=== PATIENT | female | born 2000 | race Hispanic/Latino ===

== ENCOUNTER 2024-09-21 10:34 | Emergency (ER) | payer SELFPAY ==
[~2024-09-21] VITALS: Ht 154.9 cm; Wt 73.5 kg
--- NOTE | 2024-09-21 11:05 | ERN ---
General Chief Complaint: Palpitations Stated Complaint: PALPITATIONS, SOB, COUGH, CONGESTION Time Seen by MD: 10:36 Time Seen by Midlevel: 10:36 Source: patient History of Present Illness Initial Comments Patient is a 24-year-old female with a past medical history of tachycardia presenting to the emergency department with chest pain and palpitations that started earlier this morning. Patient does report having a history of tachycardia and reports being previously followed by [facility] environmental [facility]. She was previously on 100 mg of metoprolol twice a day but stopped taking this medication one year ago. She was no longer followed by [facility] environmental [facility] because she did not like the care she received. Yesterday she reports developing some cough/congestion. This morning she woke up with some chest pain and palpitations and decided to come into the ER for further evaluation. Allergies: Coded Allergies: azithromycin (Unverified Allergy, Unknown, 09/21/24) ibuprofen (Unverified Allergy, Unknown, 09/21/24) Home Meds Active Scripts Oseltamivir Phosphate (Tamiflu) 75 Mg Cap, 75 MG PO BID for 5 Days, #10 CAP Prov:GERALD PENALOZA 09/21/24 Past Medical History Past Medical History: Other Medical History Other: HEART MURMUR, TACHYCARDIA Past Surgical History: None Female( History) LMP: Jan 25, 2024 ROS Dictation CONSTITUTIONAL: Negative except for HPI HEAD/FACE: Negative except for HPI EENT: Negative except for HPI RESPIRATORY: Negative except for HPI GASTROINTESTINAL/ABDOMINAL: Negative except for HPI GENITOURINARY: Negative except for HPI MUSCULOSKELETAL: Negative except for HPI INTEGUMENTARY: Negative except for HPI NEUROLOGICAL/PSYCH: Negative except for HPI HEMATOLOGIC/LYMPHATIC: Negative except for HPI All Systems Negative, Except as noted above. 13 point review of systems assessed and all negative except for above. Physical Exam Physical Exam Dictation Vital Signs reviewed General Appearance: Alert, oriented x 3, no acute distress, well developed, nourished. Head and Face: non-traumatic. Eyes: PERRL, pink conjunctivas, eyelid no trauma, anterior chamber with arcus senilis. Ears: Pinnas intact and no signs of trauma or erythema ear canals clear and no discharge TM no erythema Nose: No discharge, no bleeding. Oropharynx: Mouth normal, tongue pink, pharynx clear,no erythema, tonsils no exudates, no abscesses noted, mucous membrane moist Neck: Supple, non-tender, no thyromegaly, no masses, no JVD, no bruits Breast:Deferred Chest:No tenderness, no crepitus, no paradoxical movement, no retractions Lungs:Clear, well-ventilated, symmetric, no rales, no wheezing, no rhonchi, no stridor, good breath sounds bilaterally Heart: Tachycardic, regular rhythm, no murmur, no gallops Vascular: no peripheral edema, Abdomen: Soft, positive bowel sounds, nondistended, no guarding, nontender, no rebound, no masses no hepatomegaly, no splenomegaly, no Romero's sign, no hernias. Rectal: Deferred Genital: Deferred Neurological: Normal speech, motor function intact, sensory function intact Musculoskeletal: Neck nontender, full range of motion, back nontender, full range of motion, Extremities: nontender, full range of motion Skin: Color pink, dry, no turgor, no rash, no lacerations, no abrasions, no contusions. Lymphatic: Deferred Results Laboratory and Microbiology Lab and Micro Result Laboratory Tests Test 09/21/24 10:54 09/21/24 10:55 09/21/24 11:16 White Blood Count 8.3 K/uL (4.8-10.8) Red Blood Count 4.91 MIL/uL (4.00-5.50) Hemoglobin 15.0 g/dL (12.0-16.0) Hematocrit 45.1 % (36-48) Mean Corpuscular Volume 91.9 fL (79-99) Mean Corpuscular Hemoglobin 30.5 pg (27.0-33.0) Mean Corpuscular Hemoglobin Concent 33.3 g/dL (32.0-36.0) Red Cell Distribution Width 11.9 % (11.0-15.5) Platelet Count 317 K/uL (130-400) Mean Platelet Volume 9.1 fL (7.5-10.5) Immature Granulocyte % (Auto) 0.8 % (0-1) Neutrophils (%) (Auto) 80.3 % (40.0-77.0) H Lymphocytes (%) (Auto) 9.7 % (21.0-51.0) L Monocytes (%) (Auto) 9.0 % (3.0-13.0) Eosinophils (%) (Auto) 0.1 % (0.0-8.0) Basophils (%) (Auto) 0.1 % (0.0-5.0) Neutrophils # (Auto) 6.7 K/uL (1.8-7.7) Lymphocytes # (Auto) 0.8 K/uL (1.0-4.8) L Monocytes # (Auto) 0.8 K/uL (0.1-1.0) Eosinophils # (Auto) 0.01 K/uL (0.00-0.70) Basophils # (Auto) 0.01 K/uL (0.00-0.20) Absolute Immature Granulocyte (auto 0.07 K/uL (0-1) Nucleated Red Blood Cells 0.0 % (0.0-0.19) White Cell Morphology Comment See comments Sodium Level 140 mmol/L (136-145) Potassium Level 3.6 mmol/L (3.5-5.1) Chloride Level 102 mmol/L (101-111) Carbon Dioxide Level 31 mmol/L (21-32) Blood Urea Nitrogen 11 mg/dL (7-18) Creatinine 0.7 mg/dL (0.5-1.0) Glomerular Filtration Rate Calc 122 mL/min (>90) Random Glucose 94 mg/dL (70-105) Lactic Acid Level 1.3 mmol/L (0.8-2.5) Total Calcium 9.8 mg/dL (8.5-10.1) Total Creatine Kinase 111 U/L (21-232) Troponin I High Sensitivity < 4 ng/L (4-50) L B-Type Natriuretic Peptide < 5 pg/mL (0-100) Procalcitonin < 0.05 ng/mL (0.05-0.5) L Serum Test, Qualitative NEGATIVE (NEGATIVE) Urine Color LIGHT-YELLOW (YELLOW) Urine Appearance CLEAR (CLEAR) Urine pH 5.0 (5.0-8.0) Urine Specific Hailey 1.017 (1.001-1.031) Urine Protein NEGATIVE mg/dL (NEGATIVE) Urine Glucose (UA) NEGATIVE mg/dL (NEGATIVE) Urine Ketones NEGATIVE mg/dL (NEGATIVE) Urine Occult Blood NEGATIVE (NEGATIVE) Urine Nitrate NEGATIVE (NEGATIVE) Urine Bilirubin NEGATIVE mg/dL (NEGATIVE) Urine Urobilinogen 0.2 mg/dL (0.2-1.0) Urine Leukocyte Esterase NEGATIVE Meghan/uL Influenza Type A Antigen Positive For Type A Influenza Type B Antigen Negative For Type B SARS-CoV-2, RNA, NAAT NEGATIVE SARS CoV-2 Group A Streptococcus Rapid negative (NEGATIVE) Labs Reviewed?: Yes MDM MDM: Patient is a 24-year-old female with a past medical history of tachycardia presenting to the emergency department with chest pain and palpitations that started earlier this morning. Patient does report having a history of tachycardia and reports being previously followed by [facility] environmental [facility]. She was previously on 100 mg of metoprolol twice a day but stopped taking this medication one year ago. She was no longer followed by manager environmental health because she did not like the care she received. Yesterday she reports developing some cough/congestion. This morning she woke up with some chest pain and palpitations and decided to come into the ER for further evaluation. On physical examination patient is in no acute respiratory distress. She is tach ycardic in the 130s however she has an underlying history of unexplained tachycardia that has already been evaluated by manager environmental health. The remainder of her physical examination is unremarkable. Her CBC shows no leukocytosis. Her chemistries unremarkable. Her cardiac enzymes are negative. Lactic acid and procalcitonin are negative. Respiratory swabs are remarkable for influenza a. The patient will be started on Tamiflu and will be discharged home with supportive management. Differential diagnosis: Viral syndrome, upper respiratory infection, pneumonia, urinary tract infection There are no social concerns with this patient. Prescription drug management Prescriptions will include: Tamiflu Medical management and examination interpretation discussions were had by me with other qualified healthcare professionals as indicated for the patient's care. ED Course Orders Procedure Category Date Status Time 12 Lead Ekg Tracing- EKG 09/21/24 Complete Technical 10:40 B-Type Natriuretic LAB 09/21/24 Complete Peptide 10:40 Cbc With Differential LAB 09/21/24 Complete 10:40 Basic Metabolic Panel LAB 09/21/24 Complete 10:40 Creatine Kinase, Total LAB 09/21/24 Complete 10:40 Testing, LAB 09/21/24 Complete Serum Hcg 10:40 Urinalysis Profile LAB 09/21/24 Complete 10:40 Troponin I High LAB 09/21/24 Complete Sensitivity 10:40 Covid Rna Naat LAB 09/21/24 Complete 10:40 Influenza Type A & B, LAB 09/21/24 Complete Rapid 10:40 Rapid (Group A Strep) LAB 09/21/24 Complete 10:40 Lactic Acid LAB 09/21/24 Complete 10:40 Procalcitonin LAB 09/21/24 Complete 10:40 Chest 1vw RAD 09/21/24 Resulted 10:40 0.9%Nacl 1000ml (Ns PHA 09/21/24 Complete 1000ml) 11:00 Acetaminophen 500mg PHA 09/21/24 Complete Tab (Tylenol 500mg T 12:30 Current Medications Medications (Trade) Dose Ordered Sig/Wan Route PRN Reason Start Time Stop Time Status Last Admin Dose Admin Acetaminophen (TYLenol 500MG TAB) 1,000 mg ONCE ONCE PO 09/21/24 12:30 09/21/24 12:31 DC 09/21/24 13:07 Sodium Chloride 1,000 ml @ 0 mls/hr ONCE ONCE IV 09/21/24 11:00 09/21/24 11:01 DC 09/21/24 11:06 Vital Signs Date Time Temp Pulse Resp B/P (MAP) Pulse Ox O2 Delivery O2 Flow Rate FiO2 09/21/24 11:23 100.8 135 20 128/87 100 Room Air* 0 21 09/21/24 10:36 100.8 135 20 128/87 100 Room Air 0 [place] [id number] IMAGING REPORT Signed PATIENT: MARILYNN GUPTA MR#: [id number] : 2000 SEX: F AGE: 24 LOCATION: [facility] ORDER [id number] STATUS: REG ER REPORT#: [id number] SERVICE 1040 REASON: chest pain/sob/tachycardia ORDERING PHYSICIAN: GERALD PENALOZA PROCEDURE: CXR1VW - CHEST 1VW CHEST 1VW REASON: chest pain/sob/tachycardia COMPARISON: None. FINDINGS: Single view of the chest was obtained. Lungs are clear. Heart size is normal. There is no pulmonary vascular congestion. Mediastinum and bony thorax appear unremarkable. IMPRESSION: 1. Normal single view chest x-ray. DICTATED BY: MIROSLAVA ROSE MD DATE: 09/21/24 1140 ELECTRONICALLY SIGNED BY: MIROSLAVA ROSE MD DATE: 09/21/24 1149 DX & DISP Disposition: Discharge Departure Impression: Primary Impression: Influenza A Additional Impression: History of tachycardia Condition: Stable Scripts Ciprofloxacin HCl/Hc (Cipro Hc Otic Susp) 0.2 %-1 % Otsus 3 DROP OTIC BID for 7 Days, #10 ML 0 Refills Prov: GERALD PENALOZA 09/21/24 Oseltamivir Phosphate (Tamiflu) 75 Mg Cap 75 MG PO BID for 5 Days, #10 CAP Prov: GERALD PENALOZA 09/21/24 Referrals: LANCE BLUM MD Time of Disposition: 12:54 I have reviewed the case, and I agree with, Diagnosis and Plan I performed the substantive portion of the visit. I have reviewed and personally made and approve the management plan that is documented in the note by myself or the ILEANA. I acknowledge for responsibility for the patient's management plan. GERALD PENALOZA Sep 21, 2024 11:04
[2024-09-21] MEDS: 0.9%NACL 1000ML 1,000 ML IV ONE (11:06)
[2024-09-21 11:18] LABS: BASOPHILS # (AUTO) 0.01 K/uL (0.00-0.20); BASOPHILS % (AUTO) 0.1 % (0.0-5.0); EOSINOPHILS # (AUTO) 0.01 K/uL (0.00-0.70); EOSINOPHILS % (AUTO) 0.1 % (0.0-8.0); HEMATOCRIT 45.1 % (36-48); IMMATURE GRANULOCYTE ABSOLUTE 0.07 K/uL (0-1); LYMPHOCYTES # (AUTO) 0.8 K/uL (1.0-4.8); LYMPHOCYTES % (AUTO) 9.7 % (21.0-51.0); MEAN CORPUSCULAR HEMOGLOBIN 30.5 pg (27.0-33.0); MEAN CORPUSCULAR HGB CONC 33.3 g/dL (32.0-36.0); MEAN CORPUSCULAR VOLUME 91.9 fL (79-99); MONOCYTES # (AUTO) 0.8 K/uL (0.1-1.0); NEUTROPHILS # (AUTO) 6.7 K/uL (1.8-7.7); NEUTROPHILS % (AUTO) 80.3 % (40.0-77.0); PLATELET COUNT (AUTO) 317 K/uL (130-400); RED BLOOD CELL COUNT(AUTO) 4.91 MIL/uL (4.00-5.50); RED CELL DISTRIBUTION WIDTH 11.9 % (11.0-15.5); WHITE BLOOD COUNT (AUTO) 8.3 K/uL (4.8-10.8)
[2024-09-21 11:19] LABS: CREATININE 0.7 mg/dL (0.5-1.0); POTASSIUM 3.6 mmol/L (3.5-5.1)
[2024-09-21 11:23] VITALS: BP 128/87; PULSE 135; RESP 20; TEMP 100.7; O2SAT 100
[2024-09-21 11:23] LABS: APPEARANCE,URINE CLEAR (CLEAR); BILIRUBIN,URINE NEGATIVE (NEGATIVE); COLOR,URINE LIGHT-YELLOW (YELLOW); GLUCOSE, URINE (UA) NEGATIVE (NEGATIVE); KETONES,URINE NEGATIVE (NEGATIVE); LEUKOCYTE ESTERASE ,URINE NEGATIVE Leu/uL (NEGATIVE); NITRATE,URINE NEGATIVE (NEGATIVE); OCCULT BLOOD,URINE NEGATIVE (NEGATIVE); PROTEIN,URINE NEGATIVE (NEGATIVE); UROBILINOGEN,URINE 0.2 mg/dL (0.2-1.0)
[2024-09-21 11:37] LABS: ADD UA MICROSCOPIC NO
[2024-09-21 11:41] LABS: B-TYPE NATRIURETIC PEPTIDE < 5 pg/mL (0-100)
--- NOTE | 2024-09-21 11:42 | EKG ---
[facility] Test Date: 2024-09-21 Test Time: 10:43:13 Pat Name: MARILYNN GUPTA Department: ED Room: Gender: F Cofounder: [id number] : 2000 Requested By: GERALD PENALOZA Order Number: [id number] Reading MD: Ayaan Atkinson Measurements Intervals [place] Rate: 121 P: 56 [place]: 167 QRS: 0 QRSD: 73 T: 35 QT: 304 QTc: 432 Interpretive Statements Sinus tachycardia No previous ECG available for comparison Electronically Signed On 09-22-2024 14:08:43 MATERIAL LOADER by Ayaan Atkinson Please click the below link to view image of tracing.
--- NOTE | 2024-09-21 11:49 | HMCIMG ---
CHEST 1VW REASON: chest pain/sob/tachycardia COMPARISON: None. FINDINGS: Single view of the chest was obtained. Lungs are clear. Heart size is normal. There is no pulmonary vascular congestion. Mediastinum and bony thorax appear unremarkable. IMPRESSION: 1. Normal single view chest x-ray.
[2024-09-21 12:17] LABS: RAPID GROUP A STREP negative (NEGATIVE)
[2024-09-21 12:22] LABS: SARS-CoV-2, RNA, NAAT NEGATIVE SARS CoV-2 (NEGATIVE)
[2024-09-21 12:27] LABS: INFLUENZA TYPE B Negative For Type B (NEGATIVE)
[2024-09-21 12:53] LABS: INFLUENZA TYPE A Positive For Type A (NEGATIVE)
[2024-09-21] MEDS ORDERED: OSEL75 PO (12:55)
[2024-09-21] MEDS: acetaMINOPHEN 500 MG TABLET PO ONE (13:07)
[2024-09-21] MEDS ORDERED: CIPOTIC OTIC (13:18)
== END 2024-09-21 13:22 | disposition home or self-care (01) ==
LOC: EDH 10:34
DX: J10.1 Influenza due to other identified influenza virus with other respiratory manifestations (principal); Z88.1 Allergy status to other antibiotic agents; Z88.6 Allergy status to analgesic agent; Z20.822 Contact with and (suspected) exposure to COVID-19
CPT/HCPCS: 99285; 96360; 71045; 87635; 82550; 84484; 80048; 83880; 84703; 85025; 87880; 87804 ×2; 83605; 81003; 36415; 93005; 84145; J7030